=== PATIENT | male | born 1980 | race Hispanic/Latino ===

== ENCOUNTER 2020-12-31 10:36 | Observation (INO) | payer BC ==
[2020-12-31 11:13] LABS: Absolute Lymphocytes (CBC) 2.8 K/uL (0.7-4.9); Basophils % 0.3 % (0-1.3); Hematocrit 50.6 % (39.6-49.0); Lymphocytes % 12.6 % (15.3-44.8); MPV 11.4 fL (7.6-11.3); RBC Red Blood Cell Count 5.82 M/uL (4.33-5.43)
[2020-12-31 11:34] LABS: Protime INR 0.97
[2020-12-31 11:57] LABS: ALT/SGPT 46 U/L (12-78); AST/SGOT 18 U/L (15-37); Albumin 4.7 g/dL (3.4-5.0); Alkaline Phosphatase 100 U/L (45-117); BUN Blood Urea Nitrogen 16 mg/dL (7-18); Bilirubin Direct 0.1 mg/dL (0-0.2); Bilirubin Total 0.5 mg/dL (0.2-1.0); Glucose Level 185 mg/dL (74-106); Magnesium 2.4 mg/dL (1.8-2.4); NT PRO-BNP 43 pg/mL (<125); Potassium 4.5 mmol/L (3.5-5.1); Protein, Total 9.3 g/dL (6.4-8.2); Sodium Level 126 mmol/L (136-145); Troponin (Emerg Dept Use Only) < 0.02 ng/mL (0.0-0.045)
[2020-12-31 12:08] LABS: Bicarbonate 6 mmol/L (21-32)
--- NOTE | 2020-12-31 12:14 | RAD REPORT ---
EXAM DESCRIPTION: RAD - Chest Single View - 12/31/2020 11:39 am CLINICAL HISTORY: CHEST PAIN COMPARISON: Single-view chest August 2014 TECHNIQUE: AP portable chest image was obtained 12/31/2020 11:39 am . FINDINGS: Lung volumes are low accentuating interstitial pattern. No peripheral mass or consolidatio n. Significant failure or volume overload are not suspected. Heart and vasculature are normal. No giselle surable pleural effusion and no pneumothorax. No acute bony abnormality seen. No acute aortic finding s suspected. IMPRESSION: Limited portable chest with no acute cardiopulmonary finding. No significant change from comparison.
[2020-12-31 12:39] LABS: SARS-COV-2 RT PCR NEGATIVE (NEGATIVE)
--- NOTE | 2020-12-31 12:39 | RAD REPORT ---
EXAM DESCRIPTION: CT - Chest For Pe Angio - 12/31/2020 12:31 pm CLINICAL HISTORY: Chest pain. CHEST PAIN COMPARISON: Chest Single View dated 12/31/2020 TECHNIQUE: CT angiogram of the pulmonary arteries was performed with MIP. All CT scans are performed using dose optimization technique as appropriate and may include automated exposure control or mA/KV adjustment according to patient size. FINDINGS: Evaluation for pulmonary embolism is quite limited due to respiratory motion artifact. No gross evidence of significant proximal PE seen. No acute aortic finding demonstrated. Respiratory motion artifact is present. No focal consolidation is seen. No significant pericardial or pleural fluid. No concerning bony finding. IMPRESSION: There is significant respiratory motion artifact present, limiting evaluation for pulmon jon embolism. Within this limitation, no significant pulmonary embolism is seen.
[2020-12-31 12:45] LABS: Arterial Blood Carboxyhemoglob 1.5 % (0-1.5); Blood Gas Oxyhemoglobin 95.4 % (94-97); Blood O2 Saturation 98.2 % (92-98.5)
[2020-12-31] MEDS ORDERED: ASPIRIN 81 MG CHEWABLE TABLET ONE (12:58)
[2020-12-31] MEDS ORDERED: KETOROLAC 30 MG/ML INJ ONE (12:58)
[2020-12-31] MEDS ORDERED: MORPHINE 2 MG/ML SYR ONE (12:58)
[2020-12-31] MEDS ORDERED: NA CHLORIDE 0.9% 2,000 ML ONE (12:59)
[2020-12-31] MEDS ORDERED: INSULIN -REGULAR HUMAN 100 UNIT in NA CHLORIDE 0.9% 100 ML IV SCH ×2 (13:00→16:20)
[2020-12-31] MEDS ORDERED: D5W 1,000 ML with NA BICARB 8.4% 150 MEQ IV SCH ×4 (13:00→19:00)
[2020-12-31] MEDS ORDERED: ONDANSETRON 4 MG/2 ML VIAL ONE (13:15)
[2020-12-31 13:32] LABS: Blood Morphology Comment NOT SEEN (NOT SEEN); Platelet Estimate ADEQ
[2020-12-31 13:38] LABS: Urine Blood 2+ (Negative); Urine Glucose 2+ (Negative); Urine Protein 2+ (Negative); Urine Specific Gravity 1.025 (1.005-1.030)
[2020-12-31 13:58] LABS: Barbiturates NEGATIVE (NEGATIVE); Benzodiazepines NEGATIVE (NEGATIVE); Cocaine NEGATIVE (NEGATIVE); METHAMPHETAM NEGATIVE (NEGATIVE); Methadone NEGATIVE (NEGATIVE); Opiates NEGATIVE (NEGATIVE); Phencyclidine NEGATIVE (NEGATIVE); THC Cannibis NEGATIVE (NEGATIVE)
[2020-12-31 15:02] LABS: Urine Amorphous Sediment TRACE /HPF (NONE SEEN); Urine Bacteria <20 /HPF (NONE SEEN); Urine RBC NONE SEEN /HPF (NONE SEEN)
[2020-12-31] MEDS ORDERED: NA CHLORIDE 0.9% 100 ML ONE (16:11)
[2020-12-31] MEDS ORDERED: CEFTRIAXONE/SWI 1gm 1 GM/10 ML SYR ONE (16:11)
--- NOTE | 2020-12-31 16:13 | P.HP ---
Certification for Inpatient Patient admitted to: Inpatient With expected LOS: >2 Midnights Practitioner: I am a practitioner with admitting privileges, knowledge of patient current condition, hospital course, and medical plan of care. Services: Services provided to patient in accordance with Admission requirements found in Title 42 Section 412.3 of the Code of Federal Regulations Patient History Date of Service: 12/31/20 Reason for admission: DKA History of Present Illness: 40-year-old gentleman recently diagnosed with diabetes mellitus type 2 weeks ago and placed on oral medication presented emergency department with a complaint of intractable nausea and vomiting of about 4 days duration. Patient denied any fever or dysuria. He stated he has not been able to eat for the past 3 days. Workup in the emergency department revealed anionic gap metabolic acidosis with pH of 7.0, positive nitrite and ketones in the urine. He has severe leukocytosis with white cell count of 21,000. Blood sugar 185 on arrival. Patient denies any alcohol intake. He is admitted for further management of DKA. Allergies tetracycline Allergy (Verified 08/06/14 11:05) Anaphylaxis - Past Medical/Surgical History -: diabetes mellitus -: None - Family History Mother -: Other (see notes) (Mother is prediabetic.) Notes: Maternal grandfather diabetic - Social History Smoking Status: Never smoker Alcohol use: No CD- Drugs: No Place of Residence: Home Review of Systems Other: Patient denied any fever or chills. He denied any chest pain. He denied any abdominal pain. He denied any cough or shortness of breath. Except as documented, all other systems reviewed and negative. Physical Examination - Physical Exam General: Alert, In no apparent distress, Oriented x3 HEENT: Atraumatic, PERRLA, Mucous membr. moist/pink, Sclerae nonicteric Neck: Supple, JVD not distended Respiratory: Clear to auscultation bilaterally, Normal air movement, Crackles/rales Cardiovascular: No edema, Regular rate/rhythm, Normal S1 S2 Capillary refill: <2 Seconds Gastrointestinal: Normal bowel sounds, Soft and benign, Non-distended, No tenderness Musculoskeletal: No swelling, No tenderness Integumentary: No rashes Neurological: Normal speech, Normal strength at 5/5 x4 extr, Cranial nerves 3-12 intact Lymphatics: No axilla or inguinal lymphadenopathy - Studies Laboratory Data (last 24 hrs) 12/31/20 11:00: PT 11.2, INR 0.97 12/31/20 11:00: WBC 21.90 H*, Hgb 16.8, Hct 50.6 H, Plt Count 255 12/31/20 11:00: Sodium 126 L, Potassium 4.5, BUN 16, Creatinine 1.26, Glucose 185 H, Magnesium 2.4, Total Bilirubin 0.5, AST 18, ALT 46, Alkaline Phosphatase 100 Assessment and Plan - Problems (Diagnosis) (1) DKA (diabetic ketoacidosis) Current Visit: Yes Status: Acute (2) Leukocytosis Current Visit: Yes Status: Acute - Plan Admit to ICU. DKA protocol initiated with insulin drip. Aggressive IV hydration. Monitor ABG and BMP per DKA protocol. Bicarb drip due to severe metabolic acidosis. Empiric IV Levaquin. Follow cultures. Keep NPO. Check hemoglobin A1c. - Advance Directives Does patient have a Living Will: No Does patient have a Durable POA for Healthcare: No
[2020-12-31] MEDS ORDERED: ONDANSETRON 4 MG/2 ML VIAL IV PRN (16:20)
[2020-12-31] MEDS ORDERED: NA CHLORIDE 0.9% 1,000 ML IV SCH (17:00)
[2020-12-31] MEDS: ENOXAPARIN 40 MG/0.4 ML SQ SCH (17:00)
[2020-12-31] MEDS ORDERED: D5 0.45 NS 1,000 ML IV SCH (17:00)
[2020-12-31] MEDS ORDERED: Levofloxacin 750mg IV 750 MG/150 ML BAG IV SCH (17:00)
[2020-12-31 17:07] VITALS: BMI 27.4
[2020-12-31 17:15] LABS: Potassium 3.8 mmol/L (3.5-5.1)
--- NOTE | 2020-12-31 18:06 | EDPHYS ---
Physician Documentation [facility] Name: Seymour Hilliard III Age: 40 yrs Sex: Male : 1980 Arrival Date: 12/31/2020 Time: 10:39 Bed 5 Private MD: ED Physician Seymour Castorena HPI: 12/31 11:50 This 40 yrs old Male presents to ER via Wheelchair with complaints of cp Shortness Of Breath, Chest Pain. 11:50 The patient has shortness of breath at rest. cp 11:50 Onset: The symptoms/episode began/occurred this morning. cp 11:50 Duration: The symptoms are continuous, and are steadily getting worse. The patient or cp guardian reports chest pain that is located primarily in the anterior chest wall, bilaterally. The pain does not radiate. Associated signs and symptoms: Pertinent negatives: productive cough, diaphoresis, dizziness, fever, vomiting. The chest pain is described as a pressure, constant. Severity of pain: in the emergency department the pain is unchanged. Historical: - Allergies: 10:49 TETRACYCLINES; iw - Home Meds: 10:49 Xigduo XR oral [Active]; iw - PMHx: 10:49 Diabetes mellitus; iw - PSHx: 10:49 None; iw - Immunization history:: Client reports having NOT received the Covid vaccine. - Social history:: Smoking status: Patient denies any tobacco usage or history of. ROS: 11:55 Constitutional: Negative for body aches, chills, fever, poor PO intake. cp 11:55 Eyes: Negative for injury, pain, redness, and discharge. cp 11:55 ENT: Negative for ear pain, sore throat, difficulty swallowing, difficulty handling secretions. 11:55 Cardiovascular: Positive for chest pain, Negative for edema, palpitations. 11:55 Respiratory: Positive for shortness of breath, at rest. Negative for cough, wheezing. 11:55 Abdomen/GI: Negative for abdominal pain, nausea, vomiting, and diarrhea, constipation. 11:55 Back: Positive for pain at rest, pain with movement, of the left scapular area, right scapular area, left subscapular area and right subscapular area. 11:55 : Negative for urinary symptoms. 11:55 Skin: Negative for cellulitis, rash. 11:55 Neuro: Negative for altered mental status, headache, syncope, weakness. 11:55 All other systems are negative. Exam: 11:02 ECG was reviewed by the Attending Physician. cp 12:00 Constitutional: The patient appears in no acute distress, alert, awake, cp non-diaphoretic, non-toxic, well developed, well nourished, in obvious pain, uncomfortable. 12:00 Head/Face: Normocephalic, atraumatic. cp 12:00 Eyes: Periorbital structures: appear normal, Pupils: equal, round, and reactive to light and accomodation, Extraocular movements: intact throughout, Conjunctiva: normal, no exudate, no injection, Sclera: no appreciated abnormality, Lids and lashes: appear normal, bilaterally. 12:00 ENT: External ear(s): are unremarkable, Nose: is normal, Mouth: Lips: moist, Oral mucosa: moist, Posterior pharynx: Airway: no evidence of obstruction, patent. 12:00 Neck: ROM/movement: is normal, is supple, without pain, no range of motions limitations. 12:00 Chest/axilla: Inspection: normal, Palpation: crepitus, is not appreciated, tenderness, that is moderate, of the anterior aspect of right upper chest, anterior aspect of left upper chest and mid-sternal area. 12:00 Cardiovascular: Rate: tachycardic, Rhythm: regular, Heart sounds: murmur, not appreciated, rub, not appreciated, gallop, not appreciated, Edema: is not appreciated, JVD: is not appreciated. 12:00 Respiratory: the patient does not display signs of respiratory distress, Respirations: labored breathing, that is mild, shallow respirations, that is mild, Breath sounds: are clear throughout, no decreased breath sounds, no stridor, no wheezing. 12:00 Abdomen/GI: Inspection: abdomen appears normal, Bowel sounds: active, all quadrants, Palpation: abdomen is soft and non-tender, in all quadrants, rebound tenderness, is not appreciated, voluntary guarding, is not appreciated, involuntary guarding, is not appreciated. 12:00 Back: pain, that is moderate, of the left scapular area, right scapular area, left subscapular area and right subscapular area, ROM is normal. 12:00 Skin: no rash present. 12:00 Neuro: Orientation: to person, place \T\ time. Mentation: is normal, Motor: moves all fours, strength is normal. Vital Signs: 10:47 BP 122 / 88; Pulse 116; Resp 18; Temp 98.6; Pulse Ox 100% on R/A; Weight 77.11 kg; iw Height 5 ft. 6 in. (167.64 cm); Pain 10/10; 12:00 BP 128 / 89; Pulse 120; Resp 30; Pulse Ox 100% on R/A; ph 13:00 Pulse 114; Resp 26; Pulse Ox 100% on R/A; ph 14:00 BP 127 / 86; Pulse 101; Resp 16; Pulse Ox 98% on R/A; ph 15:34 BP 131 / 87; Pulse 95; Resp 22; Pulse Ox 100% on R/A; ph 10:47 Body Mass Index 27.44 (77.11 kg, 167.64 cm) iw MDM: 11:40 Patient medically screened. cp 13:00 Data reviewed: vital signs, nurses notes, lab test result(s), EKG, radiologic studies, cp CT scan, plain films, I have discussed the patient's presentation/case with the attending Emergency Department Physician; and as a result, I will admit patient. 13:00 Test interpretation: by ED physician or midlevel provider: ECG, plain radiologic cp studies. 13:09 Physician consultation: Luke Lacey was called at 13:00, was contacted at 13:00, regarding admission, to the ICU, patient's condition. 17:08 ED course: Patient much improved respiratory rate has decreased dramatically, much more rn comfortable glucose stable in the 150s and 160s. Repeat labs sent to assess response to treatment. 12/31 10:51 Order name: Basic Metabolic Panel 12/31 10:51 Order name: CBC with Diff; Complete Time: 14:42 12/31 11:54 Interpretation: Normal except: WBC 21.90; RBC 5.82; HCT 50.6; MCV 87.0; MPV 11.4; TERRY% cp 80.7; LYM% 12.6; NEUT A 17.7; MNA 1.4. 12/31 10:51 Order name: LFT's 12/31 10:51 Order name: Magnesium; Complete Time: 12:08 12/31 10:51 Order name: NT PRO-BNP; Complete Time: 12:08 12/31 10:51 Order name: PT-INR; Complete Time: 11:54 12/31 10:51 Order name: Troponin (emerg Dept Use Only); Complete Time: 12:08 12/31 10:52 Order name: Basic Metabolic Panel; Complete Time: 12:08 EDMN 12/31 14:43 Interpretation: Normal except: NA 126; CO2 6; GLUC 185; GFR 64; CA 8.2. 12/31 10:52 Order name: Liver (Hepatic) Function; Complete Time: 12:08 EDMN 12/31 14:47 Interpretation: Normal except: TP 9.3; GLOB 4.6; A/G 1.0. cp 12/31 10:55 Order name: UDS cp 12/31 10:56 Order name: Urine Drug Screen; Complete Time: 14:42 EDMN 12/31 12:10 Order name: ABG; Complete Time: 12:56 12/31 12:39 Order name: COVID-19/FLU A+B/RSV; Complete Time: 12:41 EDMN 12/31 12:43 Order name: Lactate rn 12/31 12:43 Order name: Lactate; Complete Time: 14:42 EDMS 12/31 12:57 Order name: ETOH Level cp 12/31 12:58 Order name: Alcohol Serum/Plasma; Complete Time: 14:42 EDMS 12/31 13:31 Order name: Manual Differential; Complete Time: 14:42 EDMN 12/31 14:43 Interpretation: Normal except: SEGS 83; BANDS [F] 4; LYM 7. cp 12/31 13:38 Order name: Urine Dipstick-Ancillary; Complete Time: 14:42 EDMN 12/31 14:47 Interpretation: Normal except: UGLUC 2+; UKET 4+; UBLD 2+; UPROT 2+; U NIT Positive. cp 12/31 13:42 Order name: Urine Microscopic Only kj1 12/31 13:42 Order name: Urine Culture [facility] 12/31 13:43 Order name: Urine Microscopic Only; Complete Time: 17:39 EDMS 12/31 13:43 Order name: Urine Culture [facility] 12/31 14:01 Order name: Glucose, Ancillary Testing; Complete Time: 14:42 EDMN 12/31 15:05 Order name: Glucose, Ancillary Testing; Complete Time: 17:39 EDMS 12/31 16:24 Order name: Glucose, Ancillary Testing; Complete Time: 17:39 EDMS 12/31 17:08 Order name: Lactate Sepsis 2 HR Follow-up; Complete Time: 17:39 EDMS 12/31 10:51 Order name: XRAY Chest (1 view); Complete Time: 12:19 iw 12/31 12:20 Interpretation: Report reviewed. cp 12/31 10:55 Order name: CT Chest For PE Angio; Complete Time: 12:41 cp 12/31 17:15 Order name: Glucose, Ancillary Testing; Complete Time: 17:39 EDMS 12/31 17:16 Order name: Basic Metabolic Panel; Complete Time: 17:39 EDMS 12/31 17:51 Order name: Glucose, Ancillary Testing; Complete Time: 07:36 EDMS 12/31 18:25 Order name: Glucose, Ancillary Testing; Complete Time: 07:36 EDMS 12/31 20:04 Order name: Glucose, Ancillary Testing; Complete Time: 07:36 EDMS 12/31 20:59 Order name: Basic Metabolic Panel; Complete Time: 07:36 EDMS 12/31 22:14 Order name: Glucose, Ancillary Testing; Complete Time: 07:36 EDMS 12/31 23:20 Order name: Glucose, Ancillary Testing; Complete Time: 07:36 EDMS 01/01 00:27 Order name: Glucose, Ancillary Testing; Complete Time: 07:36 EDMS 01/01 01:01 Order name: Basic Metabolic Panel; Complete Time: 07:36 EDMS 01/01 01:18 Order name: Glucose, Ancillary Testing; Complete Time: 07:36 EDMS 01/01 02:07 Order name: Glucose, Ancillary Testing; Complete Time: 07:36 EDMS 01/01 03:23 Order name: Glucose, Ancillary Testing; Complete Time: 07:36 EDMS 01/01 04:21 Order name: Glucose, Ancillary Testing; Complete Time: 07:36 EDMS 01/01 05:12 Order name: Glucose, Ancillary Testing; Complete Time: 07:36 EDMS 01/01 05:15 Order name: CBC with Automated Diff; Complete Time: 07:36 EDMS 01/01 05:27 Order name: Basic Metabolic Panel; Complete Time: 07:36 EDMS 01/01 05:31 Order name: Phosphorus; Complete Time: 07:36 EDMS 01/01 05:31 Order name: Lipid Profile; Complete Time: 07:36 EDMN 01/01 05:31 Order name: Magnesium; Complete Time: 07:36 [facility] 01/01 05:35 Order name: Hemoglobin A1c; Complete Time: 07:36 EDMN 01/01 06:31 Order name: Glucose, Ancillary Testing; Complete Time: 07:36 EDMN 01/01 08:10 Order name: Glucose, Ancillary Testing [facility] 01/01 10:02 Order name: Glucose, Ancillary Testing [facility] 01/01 11:31 Order name: Glucose, Ancillary Testing [facility] 01/01 13:36 Order name: Potassium EDMN 12/31 10:51 Order name: EKG; Complete Time: 10:52 iw 12/31 10:51 Order name: Cardiac monitoring; Complete Time: 12:17 12/31 10:51 Order name: EKG - Nurse/Tech; Complete Time: 11:08 iw 12/31 10:51 Order name: IV Saline Lock; Complete Time: 11: 12/31 10:51 Order name: Labs collected and sent; Complete Time: 11: 12/31 10:51 Order name: O2 Per Protocol; Complete Time: 12:17 iw 12/31 10:51 Order name: O2 Sat Monitoring; Complete Time: 12:17 iw EC:02 Rate is 112 beats/min. Rhythm is regular. ID interval is normal. QRS interval is cp prolonged at 112 msec. QT interval is normal. T waves are Inverted in leads aVL, aVR. Interpreted by me. Reviewed by me. Administered Medications: 12:20 CANCELLED (Physician Discretion): D5-1/2 NS 1000 ml IV at 200 ml/hr continuous cp 12:20 CANCELLED (Physician Discretion): Insulin Drip - (Insulin Regular Human 100 units, NS cp 0.9% 100 ml) IV at 3 units/hr continuous; Standard concentration 1unit/ml; Dose for DKA is 0.1 units/kg/hr 12:46 CANCELLED (Duplicate Order): D5-LR 1000 ml IV at 150 ml/hr continuous rn 12:49 Drug: morphine 2 mg Route: IVP; Site: right antecubital; ph 14:56 Follow up: Response: No adverse reaction; Pain is decreased ph 12:49 Drug: NS 0.9% 1000 ml Route: IV; Rate: 1 bolus; Site: right antecubital; ph 14:56 Follow up: Response: No adverse reaction; IV Status: Completed infusion; IV Intake: ph 1000ml 12:49 Drug: Ketorolac 15 mg Route: IVP; Site: right antecubital; ph 14:55 Follow up: Response: No adverse reaction ph 12:49 Drug: NS 0.9% 1000 ml Route: IV; Rate: 1 bolus; Site: right antecubital; ph 14:56 Follow up: Response: No adverse reaction; IV Status: Completed infusion; IV Intake: ph 1000ml 13:00 Drug: Sodium Bicarbonate 1 amp Route: IVP; Site: right antecubital; ph 14:55 Follow up: Response: No adverse reaction ph 13:55 Drug: Insulin Drip - (Insulin Regular Human 100 units, NS 0.9% 100 ml) {Co-Signature: ph sv (Jigna Capps RN).} Route: IV; Rate: calculated rate; Site: left antecubital; 15:36 Follow up: Response: No adverse reaction; IV Status: Infusion continued upon admission ph 13:56 Drug: D5W 1000 ml, Sodium Bicarbonate 150 mEq Route: IV; Rate: 150 ml/hr; Site: left ph antecubital; 15:36 Follow up: Response: No adverse reaction; IV Status: Infusion continued upon admission ph 14:57 Not Given (NPO): Aspirin Chewable Tablet 324 mg PO once; 81 mg tablets x 4 ph 16:49 Drug: Rocephin (cefTRIAXone) 1 grams Route: IV; Rate: calculated rate; Site: right ph antecubital; Disposition: 15:00 Critical Care:. cp 17:08 Co-signature as Attending Physician, Seymour Castorena MD I agree with the assessment and rn plan of care. PA/STRATEGIC DEVELOPMENT MANAGER's history reviewed, patient interviewed, and examined. HPI: 40 year old male with sob and generalized weakness My personal exam of patient reveals: Young male with moderate tachypnea, positive tachycardia, no tenderness on abdominal exam I agree with assessment and care plan and confirm the diagnosis (es) above. Disposition Summary: 12/31/20 13:11 Hospitalization Ordered Hospitalization Status: Inpatient Admission cp Provider: Luke Lacey cp Condition: Serious cp Problem: new cp Symptoms: have improved cp Bed/Room Type: Standard cp Location: [facility] ER HOLD(12/31/20 15:19) ss Room Assignment: ERHOLD-(12/31/20 15:19) ss Diagnosis - Diabetes mellitus due to underlying condition with ketoacidosis without coma cp - UTI/ Urinary tract infection, site not specified cp Discharge Instructions: - Discharge Summary Sheet aa5 Forms: - Medication Reconciliation Form cp - SBAR form cp Critical care time excluding procedures: 15:00 Critical care time: Bedside Care: 5 minutes, Consultation: 25 minutes, Family cp Intervention: 5 minutes. Total time: 35 minutes Signatures: Dispatcher [employer] EDMS Jeanna Ruiz, ZENY CAICEDO Seymour Castorena MD MD rn Smirch, Shelby, RN RN ss Frances Miranda RN RN ph Page, Binh, PA PA cp Jigna Capps RN sv Corrections: (The following items were deleted from the chart) 11:31 11:06 CORONAVIRUS+MR.LAB.BRZ ordered. EDMS EDMS 11:32 11:07 Influenza Screen (A \T\ B)+BA.LAB.BRZ ordered. EDMS EDMS 11:33 11:07 Respiratory Syncytial Virus Ag+BA.LAB.BRZ ordered. EDMS EDMS 12:20 12:19 D5-1/2 NS 1000 ml IV at 200 ml/hr continuous ordered. cp cp 12:20 12:19 Insulin Drip - (Insulin Regular Human 100 units, NS 0.9% 100 ml) IV at 3 units/hr cp continuous; Standard concentration 1unit/ml; Dose for DKA is 0.1 units/kg/hr ordered. cp 12:46 12:43 D5-LR 1000 ml IV at 150 ml/hr continuous ordered. zeny caicedo 15:19 13:11 Intensive Care Unit cp ss 15:19 13:11 cp ss
--- NOTE | 2020-12-31 18:06 | ER ---
Nurse's Notes [facility] Name: Seymour Hilliard III Age: 40 yrs Sex: Male : 1980 Arrival Date: 12/31/2020 Time: 10:39 Bed 5 Private MD: Diagnosis: Diabetes mellitus due to underlying condition with ketoacidosis without coma;UTI/ Urinary tract infection, site not specified Presentation: 12/31 10:47 Chief complaint: Patient states: woke up with midsternal chest pain and SOB, pt states iw when he tries to take a deep breath his chest hurts, he can't take any breath because his whole chest hurts, denies cough , fever or chills, recently diagnosed with diabetes started on xigduo last , has been making him have vomiting and nausea. Coronavirus screen: shortness of breath. Ebola Screen: Patient negative for fever greater than or equal to 101.5 degrees Fahrenheit, and additional compatible Ebola Virus Disease symptoms Patient denies exposure to infectious person. Patient denies travel to an Ebola-affected area in the 21 days before illness onset. No symptoms or risks identified at this time. Initial Sepsis Screen: Does the patient meet any 2 criteria? No. Patient's initial sepsis screen is negative. Does the patient have a suspected source of infection? No. Patient's initial sepsis screen is negative. Risk Assessment: Do you want to hurt yourself or someone else? Patient reports no desire to harm self or others. Onset of symptoms was December 31, 2020. 10:47 Method Of Arrival: Wheelchair iw 10:47 Acuity: RAYRAY 2 iw Historical: - Allergies: 10:49 TETRACYCLINES; iw - Home Meds: 10:49 Xigduo XR oral [Active]; iw - PMHx: 10:49 Diabetes mellitus; iw - PSHx: 10:49 None; iw - Immunization history:: Client reports having NOT received the Covid vaccine. - Social history:: Smoking status: Patient denies any tobacco usage or history of. Screenin:30 Abuse screen: Denies threats or abuse. Denies injuries from another. Nutritional ph screening: No deficits noted. Tuberculosis screening: No symptoms or risk factors identified. Fall Risk None identified. Assessment: 12:00 General: Appears in no apparent distress. uncomfortable, well groomed, Behavior is ph calm, cooperative, appropriate for age, Denies fever. Pain: Complains of pain in chest. Neuro: Level of Consciousness is awake, alert, obeys commands, Oriented to person, place, time, situation, Reports dizziness, weakness. Cardiovascular: Reports chest pain, lightheadedness, nausea, shortness of breath, vomiting, Rhythm is sinus tachycardia. Respiratory: Reports shortness of breath at rest Airway is patent Respiratory effort is shallow, Respiratory pattern is tachypnea Breath sounds are clear bilaterally. GI: Reports nausea, vomiting, Patient currently denies abdominal pain. Derm: Skin is intact, Skin is pink, warm \T\ dry. Musculoskeletal: Circulation, motion, and sensation intact. Range of motion: intact in all extremities. 13:00 Reassessment: Patient appears in no apparent distress at this time. No changes from previously documented assessment. Patient and/or family updated on plan of care and expected duration. Pain level reassessed. Pt states that chest pain has improved, remains tachypneic, awaiting insulin drip from pharmacy. 14:00 Reassessment: Patient appears in no apparent distress at this time. Patient and/or ph family updated on plan of care and expected duration. Pain level reassessed. Pt appears more comfortable, respirations decreased, pt denies pain at this time, VSS, at bedside. 15:33 Reassessment: Patient appears in no apparent distress at this time. Patient and/or ph family updated on plan of care and expected duration. Pain level reassessed. Patient is alert, oriented x 3, equal unlabored respirations, skin warm/dry/pink. Vital Signs: 10:47 BP 122 / 88; Pulse 116; Resp 18; Temp 98.6; Pulse Ox 100% on R/A; Weight 77.11 kg; iw Height 5 ft. 6 in. (167.64 cm); Pain 10/10; 12:00 BP 128 / 89; Pulse 120; Resp 30; Pulse Ox 100% on R/A; ph 13:00 Pulse 114; Resp 26; Pulse Ox 100% on R/A; ph 14:00 BP 127 / 86; Pulse 101; Resp 16; Pulse Ox 98% on R/A; ph 15:34 BP 131 / 87; Pulse 95; Resp 22; Pulse Ox 100% on R/A; ph 10:47 Body Mass Index 27.44 (77.11 kg, 167.64 cm) iw ED Course: 10:39 Patient arrived in ED. as 10:49 Triage completed. iw 10:54 Binh Bolaños PA is PHCP. cp 10:54 Seymour Castorena MD is Attending Physician. cp 11:35 Frances Miranda, MARIFER is Primary Nurse. ph 11:38 XRAY Chest (1 view) In Process Unspecified. EDMS 12:31 CT Chest For PE Angio In Process Unspecified. EDMS 13:10 Luke Lacey is Hospitalizing Provider. cp 13:10 Inserted saline lock: 20 gauge in left antecubital area, using aseptic technique. Blood mt collected. 15:30 Arm band placed on Patient placed in an exam room. ph 15:33 Patient has correct armband on for positive identification. Bed in low position. Call ph light in reach. Side rails up X 1. Pulse ox on. NIBP on. Door closed. Noise minimized. Warm blanket given. 15:35 No provider procedures requiring assistance completed. Patient admitted, IV remains in ph place. Administered Medications: 12:20 CANCELLED (Physician Discretion): D5-1/2 NS 1000 ml IV at 200 ml/hr continuous cp 12:20 CANCELLED (Physician Discretion): Insulin Drip - (Insulin Regular Human 100 units, NS cp 0.9% 100 ml) IV at 3 units/hr continuous; Standard concentration 1unit/ml; Dose for DKA is 0.1 units/kg/hr 12:46 CANCELLED (Duplicate Order): D5-LR 1000 ml IV at 150 ml/hr continuous rn 12:49 Drug: morphine 2 mg Route: IVP; Site: right antecubital; ph 14:56 Follow up: Response: No adverse reaction; Pain is decreased ph 12:49 Drug: NS 0.9% 1000 ml Route: IV; Rate: 1 bolus; Site: right antecubital; ph 14:56 Follow up: Response: No adverse reaction; IV Status: Completed infusion; IV Intake: ph 1000ml 12:49 Drug: Ketorolac 15 mg Route: IVP; Site: right antecubital; ph 14:55 Follow up: Response: No adverse reaction ph 12:49 Drug: NS 0.9% 1000 ml Route: IV; Rate: 1 bolus; Site: right antecubital; ph 14:56 Follow up: Response: No adverse reaction; IV Status: Completed infusion; IV Intake: ph 1000ml 13:00 Drug: Sodium Bicarbonate 1 amp Route: IVP; Site: right antecubital; ph 14:55 Follow up: Response: No adverse reaction ph 13:55 Drug: Insulin Drip - (Insulin Regular Human 100 units, NS 0.9% 100 ml) {Co-Signature: ph sv (Jigna Capps RN).} Route: IV; Rate: calculated rate; Site: left antecubital; 15:36 Follow up: Response: No adverse reaction; IV Status: Infusion continued upon admission ph 13:56 Drug: D5W 1000 ml, Sodium Bicarbonate 150 mEq Route: IV; Rate: 150 ml/hr; Site: left ph antecubital; 15:36 Follow up: Response: No adverse reaction; IV Status: Infusion continued upon admission ph 14:57 Not Given (NPO): Aspirin Chewable Tablet 324 mg PO once; 81 mg tablets x 4 ph 16:49 Drug: Rocephin (cefTRIAXone) 1 grams Route: IV; Rate: calculated rate; Site: right ph antecubital; Intake: 14:56 IV: 1000ml; Total: 1000ml. ph 14:56 IV: 1000ml; Total: 2000ml. ph Outcome: 13:11 Decision to Hospitalize by Provider. cp 15:36 Admitted to ER Hold. Please see [facility] for further documentation. ph 15:36 Condition: stable 15:36 Instructed on the need for admit. 01/01 14:43 Patient left the ED. aa5 Signatures: Dispatcher [employer] Lou Montelongo Irene, RN RN Mellisa Paz RN RN aa5 Frances Miranda RN RN Binh Bolaños PA PA cp Thompson, Moriah mt Nieto, Roman MD rn Stephanie Verde RN sv Corrections: (The following items were deleted from the chart) 12/31 10:50 10:47 Pulse 116bpm; Pulse Ox 100% RA; iw iw 10:51 10:47 Acuity: RAYRAY 3 iw iw 15:33 13:00 Reassessment: Patient appears in no apparent distress at this time. No changes ph from previously documented assessment. Patient and/or family updated on plan of care and expected duration. Pain level reassessed. ph
[2020-12-31] MEDS ORDERED: ENOXAPARIN 40 MG/0.4 ML SQ ONE (18:31)
[2020-12-31] MEDS ORDERED: Levofloxacin 750mg IV 750 MG/150 ML BAG IV ONE (18:32)
[2020-12-31] MEDS ORDERED: NA CHLORIDE 0.9% 1,000 ML ONE (18:32)
[2020-12-31 20:58] LABS: Potassium 4.1 mmol/L (3.5-5.1)
[2020-12-31] MEDS ORDERED: D5.45NS W/KCL 20MEQ 1,000 ML IV ONE (22:57)
[2020-12-31] MEDS ORDERED: D5.45NS W/KCL 20MEQ 1,000 ML IV SCH (23:00)
[2021-01-01 01:01] LABS: Potassium 3.4 mmol/L (3.5-5.1)
[2021-01-01] MEDS: KCL 20 MEQ/100 mL IVPB 20 MEQ/100 ML BAG IV SCH ×2 (01:51→04:36)
[2021-01-01] MEDS ORDERED: KCL 20 MEQ/100 mL IVPB 20 MEQ/100 ML BAG IV ONE ×2 (02:12→04:55)
[2021-01-01] MEDS ORDERED: KETOROLAC 30 MG/ML INJ IV ONE (03:15)
[2021-01-01] MEDS ORDERED: KETOROLAC 30 MG/ML INJ ONE (03:42)
[2021-01-01 05:14] LABS: Absolute Lymphocytes (CBC) 2.4 K/uL (0.7-4.9); Basophils % 0.5 % (0-1.3); Hematocrit 37.5 % (39.6-49.0); Lymphocytes % 25.7 % (15.3-44.8); MPV 10.6 fL (7.6-11.3); RBC Red Blood Cell Count 4.51 M/uL (4.33-5.43)
[2021-01-01 05:27] LABS: BUN Blood Urea Nitrogen 9 mg/dL (7-18); Bicarbonate 18 mmol/L (21-32); Glucose Level 130 mg/dL (74-106); Potassium 3.5 mmol/L (3.5-5.1); Sodium Level 133 mmol/L (136-145)
[2021-01-01 05:31] LABS: Magnesium 2.1 mg/dL (1.8-2.4); Phosphorus 1.5 mg/dL (2.5-4.9)
[2021-01-01] MEDS ORDERED: INSULIN GLARGINE 100 UNITS/ML SQ ONE (06:00)
[2021-01-01] MEDS: INSULIN -REGULAR HUMAN 50 UNIT/0.5 ML ML SQ SCH ×2 (07:30→11:22)
[2021-01-01] MEDS ORDERED: POTASS/SODIUM PHOSPHATE 1 PKT POWD.PACK ONE (07:58)
[2021-01-01] MEDS ORDERED: ENOXAPARIN 40 MG/0.4 ML SQ ONE (07:58)
[2021-01-01] MEDS: ENOXAPARIN 40 MG/0.4 ML SQ SCH (08:05)
[2021-01-01] MEDS ORDERED: POTASSIUM 25 MEQ EFFERV TAB PO ONE (08:06)
[2021-01-01] MEDS: POTASS/SODIUM PHOSPHATE 1 PKT POWD.PACK PO SCH ×3 (08:30→11:00)
[2021-01-01] MEDS ORDERED: POTASSIUM 25 MEQ EFFERV TAB ONE (08:47)
--- NOTE | 2021-01-01 12:43 | P.DS ---
Admission Date: 12/31/20 Discharge Date: 01/01/21 Disposition: ROUTINE DISCHARGE Discharge Condition: FAIR Reason for Admission: DKA Consultations: None. - Problems (1) DKA (diabetic ketoacidosis) Current Visit: Yes Status: Acute (2) Leukocytosis Current Visit: Yes Status: Acute Brief History of Present Illness: 40-year-old gentleman recently diagnosed with diabetes mellitus type 2 weeks ago and placed on oral medication presented emergency department with a complaint of intractable nausea and vomiting of about 4 days duration. Patient denied any fever or dysuria. He stated he has not been able to eat for the past 3 days. Workup in the emergency department revealed anionic gap metabolic acidosis with pH of 7.0, positive nitrite and ketones in the urine. He has severe leukocytosis with white cell count of 21,000. Blood sugar 185 on arrival. P atient denies any alcohol intake. He is admitted for further management of DKA. Hospital Course: Patient admitted to the ICU and DKA protocol initiated with IV insulin drip and aggressive IV hydration. Patient blood sugar was within normal range, acidosis resolved, DKA resolved. Patient was transitioned to subcutaneous insulin. He was given 10 units of Lantus insulin which kept his blood sugar readings within normal range. Hemoglobin A1c is 9.8. Patient was recently diagnosed with diabetes and started on metformin and dapaglifozin. Given that patient went into DKA within a week after starting this these medications, patient will benefit from initial insulin therapy. He is discharged with Lantus insulin 10 units daily. He is advised to check his blood sugar before given himself insulin. Vital Signs/Physical Exam: Temp Pulse Resp BP Pulse Ox 98.3 F 84 18 129/71 98 01/01/21 10:01/01/21 10:01/01/21 10:00 01/01/21 10:01/01/21 10:00 General: Alert, In no apparent distress, Oriented x3 HEENT: Mucous membr. moist/pink Neck: JVD not distended Respiratory: Clear to auscultation bilaterally, Normal air movement Cardiovascular: No edema, Regular rate/rhythm, Normal S1 S2 Capillary refill: <2 Seconds Gastrointestinal: Normal bowel sounds, Soft and benign, Non-distended, No tenderness Musculoskeletal: No swelling Integumentary: No rashes, No erythema Neurological: Normal speech, Normal strength at 5/5 x4 extr Lymphatics: No axilla or inguinal lymphadenopathy Laboratory Data at Discharge: WBC 9.40 K/uL (4.3-10.9) D 01/01/21 05:01 Hgb 13.3 g/dL (13.6-17.9) L D 01/01/21 05:01 Hct 37.5 % (39.6-49.0) L D 01/01/21 05:01 Plt Count 158 K/uL (152-406) D 01/01/21 05:01 PT 11.2 SECONDS (9.5-12.5) 12/31/20 11:00 INR 0.97 12/31/20 11:00 Sodium 133 mmol/L (136-145) L 01/01/21 05:01 Potassium 3.5 mmol/L (3.5-5.1) 01/01/21 05:01 BUN 9 mg/dL (7-18) 01/01/21 05:01 Creatinine 0.83 mg/dL (0.55-1.3) 01/01/21 05:01 Glucose 130 mg/dL (74-106) H 01/01/21 05:01 Phosphorus 1.5 mg/dL (2.5-4.9) L 01/01/21 05:01 Magnesium 2.1 mg/dL (1.8-2.4) 01/01/21 05:01 Total Bilirubin 0.5 mg/dL (0.2-1.0) 12/31/20 11:00 AST 18 U/L (15-37) 12/31/20 11:00 ALT 46 U/L (12-78) 12/31/20 11:00 Alkaline Phosphatase 100 U/L (45-117) 12/31/20 11:00 Triglycerides 109 mg/dL (<150) 01/01/21 05:01 Cholesterol 147 mg/dL (<200) 01/01/21 05:01 HDL Cholesterol 30 mg/dL (40-60) L 01/01/21 05:01 Cholesterol/HDL Ratio 4.90 01/01/21 05:01 Home Medications: Insulin Glargine,Hum.rec.anlog [Lantus Solostar] 10 unit SQ DAILY #10 ml 01/01/21 New Medications: Insulin Glargine,Hum.rec.anlog [Lantus Solostar] 10 unit SQ DAILY #10 ml Diet: ADA Activity: Ad luz Followup: Marisa Richardson FNPC [Primary Care Provider] - 1 Week
[2021-01-01 14:53] VITALS: BP 129/76; TEMP 98
--- NOTE | 2021-01-02 07:35 | EKG ---
Test Date: 2020-12-31 Test Time: 10:52:10 Park Warden: DAHIANA MEASUREMENT RESULTS: Intervals: Rate: 112 CT: 134 QRSD: 112 QT: 386 QTc: 526 Daniel: P: 22 CT: 134 QRS: -73 T: 74 INTERPRETIVE STATEMENTS: Sinus tachycardia Left anterior fascicular block Anterolateral infarct, age undetermined Abnormal ECG Compared to ECG 08/06/2014 10:05:37 Left anterior fascicular block now present Sinus rhythm no longer present Left-axis deviation no longer present Left ventricular hypertrophy no longer present Myocardial infarct finding still present Electronically Signed On 01-02-21 07:29:06 CDT by Bonifacio Griffin
[2021-01-02 11:11] VITALS: O2SAT 100
== END 2021-01-01 14:30 | disposition home or self-care (01) ==
LOC: ER 10:36 → ERHOLD 14:58 → INTOOBSV 14:58
PROVIDERS: ADMIT Internal Medicine; ATTEND Internal Medicine
DX: E11.10 Type 2 diabetes mellitus with ketoacidosis without coma (principal); D72.829 Elevated white blood cell count, unspecified; Z20.822 Contact with and (suspected) exposure to COVID-19
CPT/HCPCS: 93005; 87088; 85025 ×2; 87086; 80048 ×5; 36415; 80320; 83735 ×2; 84100; 84132; 85610; 80061; 82947 ×19; 80076; 83605 ×2; 83036; 84484; 83880; 0241U; 80307; 71275; 71045; 82805; Q9967; J3480 ×2; J1650 ×2; J2270; J0696; J7030 ×2; J2405; G0378 ×3; 81003; 81015; 96361; 96365; 96366; 96368; 96375; 99285; J1815